=== PATIENT | male | born 1935 | race Caucasian/White ===

== ENCOUNTER 2019-04-20 23:29 | Observation (INO) ==
[2019-04-21 00:02] LABS: Basophils % 0.2 % (0.0-0.8); Eosinophils # 0.3 10*3/uL (0.0-0.87); Eosinophils % 2.6 % (0.00-10.9); Hematocrit 42.1 VOL% (42.0-52.0); Hemoglobin 13.7 GM/DL (14.0-18.0); Immature Granulocytes % 0.5 %; Immature Granulocytes Absolute 0.05 #; Lymphocytes # 2.2 10*3/uL (1.4-4.0); Lymphocytes % 21.9 % (21.2-54.2); Mean Corpuscular HGB Conc 32.5 GM/DL (32-36); Mean Corpuscular Volume 94.8 FL (87-102); Mean Platelet Volume 8.5 FL (9.6-12.0); Monocytes % 9.4 % (1.7-12.7); Neutrophils % 65.4 % (38.7-73.9); Platelet Count 220 T/CUMM (130-400); Red Blood Count 4.44 MC/CUMM (3.8-5.5); Red Cell Distribution Width 13.3 % (9.3-17.3); White Blood Count 10.2 T/CUMM (4-12)
[2019-04-21 00:10] LABS: PT Patient Result 10.7 SECS
[2019-04-21 00:24] LABS: Albumin 3.7 G/DL (3.4-5.0); Bilirubin,Total 0.4 MG/DL (0.2-1.0); Calcium 8.9 MG/DL (8.5-10.1); Osmolality,Calculated 283.1 MOS/KG (273-304); Total Protein 7.4 G/DL (6.4-8.3)
[2019-04-21] MEDS ORDERED: ONDANSETRON 4 MG/2 ML VIAL IV PRN (02:10)
[2019-04-21] MEDS ORDERED: ACETAMINOPHEN 325 MG TABLET PO PRN (02:10)
[2019-04-21] MEDS ORDERED: SODIUM CHLORIDE 0.9% 1,000 ML IV PRN (02:14)
[2019-04-21] MEDS ORDERED: POTASSIUM CHLORIDE 20 MEQ TABLET PO ONE ×2 (03:01→10:47)
[2019-04-21 07:02] LABS: Hematocrit 38.2 VOL% (42.0-52.0); Hemoglobin 12.5 GM/DL (14.0-18.0)
[2019-04-21 07:39] LABS: Albumin 3.3 G/DL (3.4-5.0); Bilirubin,Total 0.6 MG/DL (0.2-1.0); Calcium 8.5 MG/DL (8.5-10.1); Osmolality,Calculated 288.7 MOS/KG (273-304); Total Protein 6.6 G/DL (6.4-8.3)
[2019-04-21] MEDS: PANTOPRAZOLE 40 MG TABLET PO SCH (09:41)
[2019-04-21 11:30] LABS: Hematocrit 37.8 VOL% (42.0-52.0); Hemoglobin 12.5 GM/DL (14.0-18.0)
[2019-04-21] MEDS ORDERED: BISACODYL 5 MG TABLET PO ONE (12:00)
[2019-04-21 13:35] LABS: Hematocrit 38.6 VOL% (42.0-52.0); Hemoglobin 12.8 GM/DL (14.0-18.0)
[2019-04-21] MEDS ORDERED: POLYETHYLENE GLYCOL POWDER 255 GM BOTTLE PO ONE (18:00)
[2019-04-21 18:42] LABS: Hematocrit 40.4 VOL% (42.0-52.0); Hemoglobin 13.2 GM/DL (14.0-18.0)
[2019-04-22 05:38] LABS: Calcium 8.6 MG/DL (8.5-10.1); Osmolality,Calculated 289.6 MOS/KG (273-304)
[2019-04-22] MEDS: PANTOPRAZOLE 40 MG TABLET PO SCH (10:18)
[2019-04-22] MEDS ORDERED: BISACODYL 5 MG TABLET PO ONE (12:00)
[2019-04-22] MEDS ORDERED: POLYETHYLENE GLYCOL POWDER 255 GM BOTTLE PO ONE (18:00)
[2019-04-23 04:49] LABS: Basophils % 0.2 % (0.0-0.8); Eosinophils # 0.4 10*3/uL (0.0-0.87); Eosinophils % 5.8 % (0.00-10.9); Hematocrit 39.7 VOL% (42.0-52.0); Hemoglobin 12.8 GM/DL (14.0-18.0); Immature Granulocytes % 0.3 %; Immature Granulocytes Absolute 0.02 #; Lymphocytes # 1.9 10*3/uL (1.4-4.0); Lymphocytes % 29.5 % (21.2-54.2); Mean Corpuscular HGB Conc 32.2 GM/DL (32-36); Mean Corpuscular Volume 95.4 FL (87-102); Monocytes % 11.9 % (1.7-12.7); Neutrophils % 52.3 % (38.7-73.9); Platelet Count 220 T/CUMM (130-400); Red Blood Count 4.16 MC/CUMM (3.8-5.5); Red Cell Distribution Width 13.4 % (9.3-17.3); White Blood Count 6.5 T/CUMM (4-12)
[2019-04-23 05:23] LABS: Calcium 8.7 MG/DL (8.5-10.1); Osmolality,Calculated 286.7 MOS/KG (273-304)
[2019-04-23] MEDS ORDERED: LACTATED RINGERS 1,000 ML IV SCH (07:00)
[2019-04-23] MEDS ORDERED: PHENYLEPHRINE 1 MG/10 ML SYRINGE IV ONE (09:00)
[2019-04-23] MEDS ORDERED: LIDOCAINE 2% 5 ML VIAL ONE (09:00)
[2019-04-23] MEDS ORDERED: PROPOFOL 200 MG/20 ML VIAL IV ONE (09:00)
[2019-04-23] MEDS: PANTOPRAZOLE 40 MG TABLET PO SCH (14:48)
[2019-04-23] MEDS ORDERED: POTASSIUM CHLORIDE 20 MEQ TABLET PO ONE (15:00)
[2019-04-23] MEDS: METOPROLOL TARTRATE 25 MG TABLET PO SCH (21:24)
[2019-04-24 05:16] LABS: Hematocrit 40.1 VOL% (42.0-52.0); Hemoglobin 12.9 GM/DL (14.0-18.0)
[2019-04-24 07:54] VITALS: BP 122/64
[2019-04-24] MEDS: PANTOPRAZOLE 40 MG TABLET PO SCH (08:49)
[2019-04-24] MEDS: METOPROLOL TARTRATE 25 MG TABLET PO SCH (08:49)
[2019-04-24] MEDS ORDERED: ASPIRIN EC 81 MG TABLET PO SCH (09:00)
== END 2019-04-24 11:55 | disposition home or self-care (01) ==
LOC: N.EDINP 23:29 → N.ED 23:29 → SUATTDRO 04-21 02:10 → N.2E 04-21 02:35
PROVIDERS: ADMIT Internal Medicine; ATTEND Internal Medicine